=== PATIENT | female | born 1985 | race African-American/Black ===

== ENCOUNTER 2016-11-21 07:51 | Day surgery (SDC) | payer OTHER ==
[2016-11-18 16:09] VITALS: BMI 27.4
[2016-11-21 08:19] LABS: BASOPHIL 1.2 % (0-2.0); MCH 28.5 pg (25.7-33.7); NEUTROPHILS 58.4 % (42.8-82.8); PLATELET COUNT 264 K/MM3 (134-434); RDW 14.6 % (11.6-15.6); WHITE BLOOD COUNT 8.8 K/mm3 (4.0-10.0)
[2016-11-21 08:47] LABS: ALBUMIN 3.4 g/dl (3.4-5.0); ANION GAP 9 (8-16); CALCIUM 8.7 mg/dL (8.5-10.1); CO2 25 mmol/L (21-32); GLUCOSE,RANDOM 85 mg/dL (74-106)
[2016-11-21 08:50] LABS: ALK PHOS 41 U/L (45-117); BILIRUBIN,TOTAL 0.4 mg/dL (0.2-1.0); COCKROFT - GAULT 160.5055; CREATININE 0.6 mg/dL (0.55-1.02); SGOT/AST 11 U/L (15-37); SGPT/ALT 16 U/L (12-78); TOT PROT 6.5 g/dl (6.4-8.2)
[2016-11-21] MEDS ORDERED: MIDAZOLAM HCL 2 MG/2 ML SINGLE DOSE VIAL ONE ×2 (10:02)
[2016-11-21] MEDS ORDERED: ACETAMINOPHEN 325 MG TABLET (FP) PO PRN (10:03)
[2016-11-21] MEDS ORDERED: IBUPROFEN 800 MG/8 ML IJ IVPB PRN (10:03)
[2016-11-21] MEDS ORDERED: PROPOFOL 20 ML ONE ×3 (10:14)
[2016-11-21] MEDS ORDERED: LACTATED RINGERS SOLUTION 1,000 ML IV SCH (10:15)
[2016-11-21] MEDS ORDERED: LIDOCAINE HCL/PF 2% SDV 5ML VIAL ONE (10:15)
[2016-11-21] MEDS ORDERED: KETOROLAC TROMETHAMINE 30 MG/1 ML VIAL ONE (10:26)
[2016-11-21] MEDS ORDERED: ACETAMINOPHEN 1000 MG/100 ML VIAL (NON FORMULARY) IVPB PRN (10:40)
[2016-11-21] MEDS ORDERED: PROMETHAZINE HCL 25 MG/1 ML VIAL IVPUSH PRN (10:40)
[2016-11-21] MEDS ORDERED: oxyCODONE HCL 5 MG TABLET PO PRN (10:40)
[2016-11-21] MEDS ORDERED: ONDANSETRON 4 MG/2 ML VIAL IVPUSH PRN (10:40)
--- NOTE | 2016-11-21 10:46 | HP ---
History & Physical Update - History History: No Change - Physical Physical: No Change - Assessment Assessment: No Change - Plan Plan: No Change (missed at 6 weeks, for suction D&C)
--- NOTE | 2016-11-21 10:47 | OP ---
Operative Note - Note: Operative Date: 11/21/16 (dictation number [id number]) Pre-Operative Diagnosis: missed at 6 weeks Operation: suction D&C Findings: normal female genitalia Post-Operative Diagnosis: Same as Pre-op Surgeon: Berna Owen Anesthesiologist/TECH BRAZER TESTER: Daryl Gill Anesthesia: MAC Specimens Removed: products of conception Estimated Blood Loss (mls): 10 Operative Report Dictated: Yes
[2016-11-21 11:48] VITALS: TEMP 97.9
[2016-11-21 12:22] VITALS: BP 112/73; PULSE 72
--- NOTE | 2016-11-21 13:34 | OP ---
DATE OF OPERATION: 11/21/2016 PREOPERATIVE DIAGNOSIS: Missed at approximately 6 weeks' gestation. POSTOPERATIVE DIAGNOSIS: Missed at approximately 6 weeks' gestation. PROCEDURE: Suction dilation and curettage. SURGEON: Berna Owen DO LEARNING DEVELOPER: None needed. ANESTHESIA: MAC. Anesthesia performed by Dr. Daryl Gill ESTIMATED BLOOD LOSS: Approximately 10 mL. SPECIMENS REMOVED: Included products of conception sent to Pathology for chromosomal analysis as well as permanent evaluation. Sponge and instrument count reported to be correct at the end of the case. DISPOSITION: Stable to PACU. BRIEF HISTORY: The patient is a 31-year-old female who had been seen in the office and upon ultrasound examination was found to have a missed . The patient was counseled on her options and elected to undergo a dilation and curettage procedure. The patient was admitted to [facility] on November 21, 2016 at which point the consents for the procedure were signed. DESCRIPTION OF PROCEDURE: The patient was then taken back to the operating room where she was given MAC anesthesia by Dr. Daryl Gill. She was then placed in the dorsal lithotomy position and prepped and draped in the usual sterile fashion. A hard time-out was performed. A speculum was placed inside the vagina. The cervix was grasped with a single-tooth tenaculum. The cervix was serially dilated to accommodate a 7 curved suction curette, which was then placed to the fundus. Several passes with the suction curette were completed, and then using a sharp curette, gentle curettage within the uterus and all 4 pereira was completed until adequate uterine cry was appreciated. One final pass with the suction curette was completed to evacuate the remaining tissue. The tenaculum was then released from the cervix. Tenaculum sites were hemostatic. All instruments were removed from the vagina and sponge and instrument counts were reported to be correct. The patient was awoken from anesthesia and recovering in stable condition in PACU at the time of this dictation. BERNA OWEN DO /[id number]
--- NOTE | 2016-11-22 12:59 | PATH ---
Surgical Pathology Report Patient Name: DRE HAYDEN Med. Rec. #: [id number] /Age/Gender: 1985 (Age: 31) / F Account: [id number] Location: [facility] SURGICAL Taken: 11/21/2016 Received: 11/21/2016 Reported: 11/22/2016 Physicians: Berna Owen M.D. Specimen(s) Received CONTENTS OF UTERUS SENT FRESH FOR CHROMOSOMAL ANALYSIS Clinical History Missed Final Diagnosis UTERINE CONTENTS, EVACUATION: CHORIONIC VILLI CONSISTENT WITH PRODUCTS OF CONCEPTION, AND PORTIONS OF DECIDUA. Comment: Chromosome analysis is pending, and a report will follow. Electronically Signed Jw Evans M.D. Addendum Reported: 12/06/2016 Addendum Diagnosis CYTOGENETIC KARYOTYPE ANALYSIS (CHROMOSOME ANALYSISPERFORMED AND INTERPRETED AT [facility], [place], [place] (SPECIMEN #[id number]) SHOWED THE FOLLOWING: RESULTS: 47,XX,+16 Abnormal karyotype, female. 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 Trisomy 16 is the most common autosomal trisomy associated with spontaneous abortions. RECOMMENDATION: Genetic counseling. Roel Leigh M.D. Gross Description Received fresh labeled "contents of uterus," is an 8.0 x 6.0 x 0.6 cm aggregate of mobley-red soft tissue fragments. Probable villous tissue is identified. No definite somatic tissue is identified. A career services representative portion is placed in RPMI solution and sent for chromosomal analysis. Additional career services representative portions are submitted in 3 cassettes. /11/21/2016 [facility]/11/21/2016
== END 2016-11-21 12:26 | disposition home or self-care (01) ==
LOC: JASU-SURG 07:51
PROVIDERS: ATTEND Obstetrics & Gynecology
PROC: 10D17ZZ Extraction of Products of Conception, Retained, Via Natural or Artificial Opening (ICD-10-PCS; principal; 2016-11-21 10:00)
DX: O02.1 Missed abortion (principal); Z3A.01 Less than 8 weeks gestation of pregnancy
CPT/HCPCS: 36415; 80053; 85025; 86850; 86900; 86901; 88305-TC; 94760

== ENCOUNTER 2017-01-31 19:30 | Emergency (ER) | payer OTHER ==
[2017-01-31 19:46] VITALS: BMI 27.3
[2017-01-31] MEDS ORDERED: SODIUM CHLORIDE 1,000 ML IV STA (20:28)
--- NOTE | 2017-01-31 20:38 | PDOC ---
History of Present Illness - General History Source: Patient Exam Limitations: No Limitations - History of Present Illness Initial Comments: 01/31/17 21:30 The patient is a 31 year old female with significant past medical history of PCOS who presents to the ED for abdominal pain since 12pm. Patient reports her pain starts in the lower pelvic region radiating up to the abdomen. States having a pressure-like sensation on urination and defection. Denies dysuria, urgency, or frequency. States her last meal was around 1am and since then she has been feeling nauseous without vomiting or diarrhea. Patient is sexually active and her LMP was last month. Admits to non-malodorous dark brown blood vs bright red blood of her normal period. Patient is with 2 D&C in the past. The patient denies fever, chills, cough, SOB, chest pain, and palpitations. Allergies: NKDA Social History: No alcohol, tobacco, or drug use reported. Past Surgical History: D&C x2 PCP: None reported <Jessica Newton - Last Filed: 01/31/17 21:30> - General History Source: Patient <KuldeepDung gary - Last Filed: 01/31/17 22:31> - General Chief Complaint: Pain Stated Complaint: ABDOMINAL PAIN Time Seen by Provider: 01/31/17 20:38 Past History <Jessica Newton - Last Filed: 01/31/17 21:30> - Past Medical History Anemia: No Asthma: No Cancer: No Cardiac Disorders: No CVA: No COPD: No CHF: No Dementia: No Diabetes: No GI Disorders: No Disorders: No HTN: No Hypercholesterolemia: No Liver Disease: No Seizures: No Thyroid Disease: No - Reproductive History (#): 1 Para: 0 - Immunization History Immunization Up to Date: Yes - Psycho/Social/Smoking Cessation Hx Anxiety: No Suicidal Ideation: No Smoking History: Never smoked Have you smoked in the past 12 months: No Information on smoking cessation initiated: No Hx Alcohol Use: No Drug/Substance Use Hx: No Substance Use Type: None <Dung Estrada - Last Filed: 01/31/17 22:31> - Past Medical History Allergies/Adverse Reactions: Allergies Allergy/AdvReac Type Severity Reaction Status Date / Time No Known Allergies Allergy Verified 01/31/17 19:46 Home Medications: Ambulatory Orders NK [No Known Home Medication] 01/31/17 Review of Systems - Review of Systems Able to Perform ROS?: Yes Comments:: 01/31/17 21:31 CONSTITUTIONAL: Absent: fever, no chills, no fatigue EYES: Absent: visual changes ENT: Absent: ear pain, no sore throat CARDIOVASCULAR: Absent: chest pain, no palpitations RESPIRATORY: Absent: cough, no SOB GI: +pelvic pain radiating up to the abdomen, nausea, pressure on defection Absent: no vomiting, no constipation, no diarrhea GENITOURINARY: +pressure on urination, vaginal bleeding Absent: dysuria, no frequency, no hematuria MUSCULOSKELETAL: Absent: back pain, no arthralgia, no myalgia SKIN: Absent: rash NEURO: Absent: headache <Jessica Newton - Last Filed: 01/31/17 21:30> *Physical Exam - Vital Signs Last Vital Signs Temp Pulse Resp BP Pulse Ox 97.9 F 76 19 122/77 99 01/31/17 19:43 01/31/17 19:43 01/31/17 19:43 01/31/17 19:43 01/31/17 19:43 - Physical Exam Comments: 01/31/17 21:32 GENERAL: Well-appearing, well-nourished. Mild distress. HEENT: Normocephalic, atraumatic. PERRL, EOM intact. CARDIOVASCULAR: Normal S1, S2. Regular rate and rhythm. PULMONARY: Clear to auscultation bilaterally. ABDOMEN: Soft, non-distended, diffuse lower quadrants tenderness. No rebound or guarding. Normoactive bowel sounds. EXTREMITIES: Normal ROM in all four extremities. No gross deformities. SKIN: Warm, dry. No rash NEUROLOGICAL: No focal neurological deficits. <Jessica Newton - Last Filed: 01/31/17 21:30> - Vital Signs Last Vital Signs Temp Pulse Resp BP Pulse Ox 97.9 F 76 19 122/77 99 01/31/17 19:43 01/31/17 19:43 01/31/17 19:43 01/31/17 19:43 01/31/17 19:43 <Dung Estrada - Last Filed: 01/31/17 22:31> ED Treatment Course - LABORATORY CBC & Chemistry Diagram: 01/31/17 20:50 01/31/17 20:50 - ADDITIONAL ORDERS Additional order review: Laboratory Results 01/31/17 01/31/17 01/31/17 20:50 20:50 20:50 INR 1.16 H Sodium 141 Potassium 4.2 Chloride 107 Carbon Dioxide 31 D Anion Gap 3 L BUN 11 Creatinine 0.7 Creat Clearance w eGFR > 60 Random Glucose 126 H D Calcium 9.3 Magnesium 2.1 Total Bilirubin 0.3 D AST 11 L ALT 15 Alkaline Phosphatase 53 D Total Protein 7.3 Albumin 3.8 Total Amylase 55 01/31/17 20:50 RBC 4.71 MCV 83.5 MCHC 33.2 RDW 14.0 MPV 8.8 Neutrophils % 78.4 D Lymphocytes % 11.2 D Monocytes % 9.2 Eosinophils % 0.5 Basophils % 0.7 - Medications Given in the ED: ED Medications Discontinued Medications Generic Name Dose Route Start Last Admin Trade Name Freq PRN Reason Stop Dose Admin Sodium Chloride 1,000 mls @ 1,000 mls/hr 01/31/17 20:28 01/31/17 20:50 Normal Saline - IV 01/31/17 21:27 1,000 mls/hr ASDIR STA Administration <Jessica Newton - Last Filed: 01/31/17 21:30> - LABORATORY CBC & Chemistry Diagram: 01/31/17 20:50 01/31/17 20:50 <Dung Estrada - Last Filed: 01/31/17 22:31> Medical Decision Making - Medical Decision Making 01/31/17 22:31 Dr. Estrada: The scribe's documentation has been prepared under my direction and personally reviewed by me in its entirery. I confirm that the note above accurately reflects all work, treatment, procedures, and medical decision making performed by me. <Dung Estrada - Last Filed: 01/31/17 22:31> *DC/Admit/Observation/Transfer - Attestations Scribe Attestion: 01/31/17 21:32 Documentation prepared by Jessica Newton, acting as regional medical director for Dung Estrada MD/DO. <Jessica Newton - Last Filed: 01/31/17 21:30> - Discharge Dispostion Admit: No <NatalieYaquelinDung - Last Filed: 01/31/17 22:31> Diagnosis at time of Disposition: Jes[place], Pelvic pain - Discharge Dispostion Disposition: HOME Condition at time of disposition: Stable - Patient Instructions Printed Discharge Instructions: DI for Pelvic Pain, DI for Dysmenorrhea Additional Instructions: Take Motrin and any anti-inflammatory for pain. Follow up with your doctor as needed. Return if any problems.
[2017-01-31 21:08] LABS: BASOPHIL 0.7 % (0-2.0); EOSINOPHIL 0.5 % (0-4.5); MCH 27.7 pg (25.7-33.7); MCHC 33.2 g/dl (32.0-36.0); MEAN CELL VOLUME 83.5 fl (80-96); MEAN PLT VOLUME 8.8 fl (7.5-11.1); NEUTROPHILS 78.4 % (42.8-82.8); PLATELET COUNT 252 K/MM3 (134-434); WHITE BLOOD COUNT 11.5 K/mm3 (4.0-10.0)
[2017-01-31 21:15] LABS: INR 1.16 (0.82-1.09); PROTHROMBIN TIME (PATIENT) 12.8 SEC (9.98-11.88)
[2017-01-31 21:27] LABS: ALBUMIN 3.8 g/dl (3.4-5.0); ALK PHOS 53 U/L (45-117); AMYLASE 55 U/L (25-115); ANION GAP 3 (8-16); BILIRUBIN,TOTAL 0.3 mg/dL (0.2-1.0); CALCIUM 9.3 mg/dL (8.5-10.1); CO2 31 mmol/L (21-32); CREATININE 0.7 mg/dL (0.55-1.02); GLUCOSE,RANDOM 126 mg/dL (74-106); SGOT/AST 11 U/L (15-37); SGPT/ALT 15 U/L (12-78); TOT PROT 7.3 g/dl (6.4-8.2)
[2017-01-31] MEDS ORDERED: KETOROLAC TROMETHAMINE 30 MG/1 ML VIAL IVPUSH ONE (21:42)
[2017-01-31 21:47] LABS: ACETONE SERUM NEGATIVE (NEGATIVE)
[2017-01-31] MEDS ORDERED: KETOROLAC TROMETHAMINE 30 MG/1 ML VIAL ONE (21:47)
[2017-01-31 22:01] LABS: URINE APPEARANCE CLEAR; URINE BILIRUBIN NEGATIVE (NEGATIVE); URINE BLOOD 2+ (NEGATIVE); URINE COLOR LTYELLOW; URINE GLUCOSE (UA) NEGATIVE (NEGATIVE); URINE KETONE NEGATIVE (NEGATIVE); URINE LEUK ESTERASE NEGATIVE (NEGATIVE); URINE NITRITE NEGATIVE (NEGATIVE); URINE PROTEIN NEGATIVE (NEGATIVE); URINE UROBILINOGEN NEGATIVE E.U./dl (0.2-1.0)
[2017-01-31 22:03] LABS: URINE MUCUS RARE; URINE RBC 61 /hpf (0-3)
[2017-01-31 22:40] VITALS: BP 127/77; PULSE 92; TEMP 98.5
== END 2017-01-31 22:41 | disposition home or self-care (01) ==
LOC: JER 19:30
PROC: 3E0337Z Introduction of Electrolytic and Water Balance Substance into Peripheral Vein, Percutaneous Approach (ICD-10-PCS; principal; 2017-01-31)
PROC: 3E0333Z Introduction of Anti-inflammatory into Peripheral Vein, Percutaneous Approach (ICD-10-PCS; 2017-01-31)
DX: N94.0 Mittelschmerz (principal); E28.2 Polycystic ovarian syndrome
CPT/HCPCS: 36415; 76830-TC; 80053; 81003; 81015; 82009; 82150; 83735; 84703; 85025; 85610; 99283-25